=== PATIENT | male | born 1980 | race Hispanic/Latino ===

== ENCOUNTER 2020-01-18 18:46 | Emergency (ER) | payer SELFPAY ==
[~2020-01-18] VITALS: Ht 185.4 cm; Wt 145.1 kg
--- NOTE | 2020-01-18 20:57 | Diagnostic Imaging Report ---
EXAMINATION: CHEST SINGLE (PORTABLE) INDICATION: ^Y ^fever, cough, sob c exertion- covid exposure ^20200118 ^2029 ^N COMPARISON: None FINDINGS: AP view TUBES and LINES: None. LUNGS/PLEURA: Lungs are well inflated. There is no evidence of pneumonia or pulmonary edema.. There is no pleural effusion or pneumothorax. HEART AND MEDIASTINUM: The cardiomediastinal silhouette is unremarkable. BONES AND SOFT TISSUES: No acute osseous lesion. Soft tissues are unremarkable. UPPER ABDOMEN: No free air under the diaphragm. IMPRESSION: No acute thoracic abnormality. Signed by: Lázaro Owens MD on 01/18/2020 8:54 PM
--- NOTE | 2020-01-18 22:22 | Emergency Department Note ---
History of Present Illnes History of Present Illness Chief Complaint: General Medicine Complaints History of Present Illness This is a 39 year old male HERE FOR SUBJECTIVE FEVER AT HOME WITH SWEATING, CLIENT STATES THAT HE HAD FEVER LAST FRIDAY OF 102. TAKING MUCINEX, AND TYLENOL OFF AND ON. CLIENT NOT CLEAR ON SYMPTOMS. DENIES FEVER TODAY. [place]END ABOUT 8 DAYS AGO WHO IS NOW POSITIVE FOR COVID . Historian: Patient Arrival Mode: Car Onset (how long ago): day(s) (4) Location: ALL OVER Quality: BODY ACHES, DRY COUGH, INTERMITTENT FEVER Severity: mild Onset quality: gradual Duration (how long): day(s) (4) Timing of current episode: intermittent Progression: waxing and waning Chronicity: new Relieving factors: none Exacerbating factors: none Associated symptoms: Reports denies other symptoms Treatments prior to arrival: none Past Medical/Family History Physician Review I have reviewed the patient's past medical and family history. Any updates have been documented here. Past Medical History Recent Fever: No Clinical Suspicion of Infectio: No New/Unexplained Change in Ment: No Past Medical History: A-Fib Past Surgical History: None Social History Smoking Cessation: Never Smoker Counseling Performed: No Alcohol Use: None Any Illegal Drug Use: No TB Exposure/Symptoms: No Physically hurt or threatened: No Other Any Pre-Existing Lines (PICC,: No Is patient up to date on immun: Yes Last Flu: denies Last Pneumovax: denies Review of Systems Review of Systems Constitutional: Reports as per HPI EENTM: Reports no symptoms Cardiovascular: Reports no symptoms Respiratory: Reports as per HPI Gastrointestinal: Reports no symptoms Genitourinary: Reports no symptoms Musculoskeletal: Reports no symptoms Integumentary: Reports no symptoms Neurological: Reports no symptoms Psychological: Reports no symptoms Endocrine: Reports no symptoms Hematological/Lymphatic: Reports no symptoms Physical Exam Related Data Allergies: Coded Allergies: No Known Allergies (Unverified , 01/18/20) Triage Vital Signs Vital Signs Date Time Temp Pulse Resp B/P (MAP) Pulse Ox O2 Delivery O2 Flow Rate FiO2 01/18/20 19:05 97.9 82 18 133/94 99 Vital signs reviewed: Yes Physical Exam CONSTITUTIONAL Constitutional: Present well-developed, Present well-nourished HENT HENT: Present normocephalic, Present atraumatic, Present oropharynx clear/moist, Present nose normal HENT L/R: Present left ext ear normal, Present right ext ear normal EYES Eyes: Reports PERRL, Reports conjunctivae normal NECK Neck: Present ROM normal PULMONARY Pulmonary: Present effort normal, Present breath sounds normal CARDIOVASCULAR Cardiovascular: Present regular rhythm, Present heart sounds normal, Present capillary refill normal, Present normal rate GASTROINTESTINAL Abdominal: Present soft, Present nontender, Present bowel sounds normal GENITOURINARY Genitourinary: Present exam deferred SKIN Skin: Present warm, Present dry MUSCULOSKELETAL Musculoskeletal: Present ROM normal NEUROLOGICAL Neurological: Present alert, Present oriented x 3, Present no gross motor or sensory deficits PSYCHOLOGICAL Psychological: Present mood/affect normal, Present judgement normal Results Laboratory Laboratory Laboratory Tests Test 01/18/20 19:55 Imaging Imaging results reviewed: Yes Impressions EXAMINATION: CHEST SINGLE (PORTABLE) INDICATION: ^Y ^fever, cough, sob c exertion- covid exposure ^20200118 ^2029 ^N COMPARISON: None FINDINGS: AP view TUBES and LINES: None. LUNGS/PLEURA: Lungs are well inflated. There is no evidence of pneumonia or pulmonary edema.. There is no pleural effusion or pneumothorax. HEART AND MEDIASTINUM: The cardiomediastinal silhouette is unremarkable. BONES AND SOFT TISSUES: No acute osseous lesion. Soft tissues are unremarkable. UPPER ABDOMEN: No free air under the diaphragm. IMPRESSION: No acute thoracic abnormality. Signed by: Lázaro Owens MD on 01/18/2020 8:54 PM Assessment & Plan Medical Decision Making MDM PT WITH FEVER, COUGH, BODY ACHES, WITH EXPOSURE TO COVID POSITIVE FRIEND CXR, COVID 19 ORDERED PT'S CXR NORMAL, COVID 19 PENDING, PT DISCHARGED HOME INSTRUCTED TO SELF QUARANTINE FOR NEXT 14 DAYS, WE WILL CALL PT WITH COVID RESULTS WHEN THEY ARRIVE Assessment & Plan Final Impression: (1) Viral syndrome Last Vital Signs Date Time Temp Pulse Resp B/P (MAP) Pulse Ox O2 Delivery O2 Flow Rate FiO2 01/18/20 19:48 98.1 78 17 113/72 99 ERIK MAHONEY MD Jan 18, 2020 22:22
[2020-01-18 22:38] VITALS: BP 123/84
== END 2020-01-18 22:39 | disposition home or self-care (01) ==
LOC: ER 18:46
DX: R50.9 Fever, unspecified (principal); R05 Cough; U07.1 COVID-19; B34.9 Viral infection, unspecified
CPT/HCPCS: 71045; 87635; 99283

== ENCOUNTER 2021-02-26 13:15 | Emergency (ER) | payer SELFPAY ==
[~2021-02-26] VITALS: Ht 185.4 cm; Wt 145.1 kg
[2021-02-26 14:16] LABS: BASOPHILS % 0.4 % (0.0-1.0); EOSINOPHILS # (AUTO) 0.2 (0.0-0.4); HEMATOCRIT 40.6 % (38.2-49.6); HEMOGLOBIN 13.1 g/dL (14.0-18.0); LYMPHOCYTES # (AUTO) 1.7 (1.0-3.2); LYMPHOCYTES % 17.5 % (18.0-39.1); MEAN CORPUSCULAR HEMOGLOBIN 28.6 pg (28-32); MEAN CORPUSCULAR HGB CONC 32.3 g/dL (31-35); MEAN CORPUSCULAR VOLUME 88.6 fL (81-99); MONOCYTES # (AUTO) 0.7 (0.2-0.8); MONOCYTES % 6.5 % (4.4-11.3); NEUTROPHILS # (AUTO) 7.3 (2.1-6.9); NEUTROPHILS % 73.1 % (38.7-80.0); PLATELET COUNT 244 x10e3/uL (140-360); RED BLOOD COUNT 4.58 x10e6/uL (4.3-5.7); RED CELL DISTRIBUTION WIDTH 12.6 % (11.7-14.4)
[2021-02-26 14:18] LABS: CLARITY,URINE SL CLOUDY (CLEAR); COLOR,URINE ORANGE (YELLOW); KETONES,URINE TRACE (NEGATIVE); LEUKOCYTE ESTERASE ,URINE NEGATIVE (NEGATIVE); NITRITE,URINE POSITIVE (NEGATIVE); PROTEIN,URINE DIPSTICK 1+ (NEGATIVE); URINE UROBILINOGEN 2 mg/dL (0.2 - 1)
[2021-02-26 14:30] LABS: AMORPHOUS SEDIMENT,URINE FEW (FEW); BACTERIA,URINE MODERATE /HPF; EPITHELIAL CELLS,URINE FEW /LPF; MUCUS,URINE FEW (RARE); WBC,URINE (MAN) 0-5 /HPF (0-5)
[2021-02-26 14:33] LABS: ALBUMIN 3.5 g/dL (3.5-5.0); ALBUMIN/GLOBULIN RATIO 0.9 (0.8-2.0); ANION GAP 12.9 mmol/L (8-16); CALCIUM 8.8 mg/dL (8.4-10.2); CREATININE, SERUM 1.44 mg/dL (0.72-1.25); POTASSIUM 3.9 mmol/L (3.5-5.1)
[2021-02-26] MEDS ORDERED: DOXYCYCLINE HYCLATE TABLET 100 MG TAB PO ONE (15:45)
[2021-02-26] MEDS ORDERED: CEFTRIAXONE 1 GM VIAL IM ONE (15:45)
[2021-02-26] MEDS ORDERED: GENTAMICIN 120MG/NS 100ML 100 ML IV ONE (17:00)
[2021-02-26 17:23] VITALS: BP 136/71
== END 2021-02-26 17:24 | disposition home or self-care (01) ==
LOC: ER 13:24
DX: R10.32 Left lower quadrant pain (principal); N13.2 Hydronephrosis with renal and ureteral calculous obstruction; R73.9 Hyperglycemia, unspecified; N43.40 Spermatocele of epididymis, unspecified; N43.3 Hydrocele, unspecified; K76.0 Fatty (change of) liver, not elsewhere classified
CPT/HCPCS: 36415; 74176; 76870; 80053; 81001; 83690; 85025; 87086; 93976; 99284; J0696; J1580

== ENCOUNTER 2021-07-23 12:48 | Emergency (ER) | payer SELFPAY ==
[~2021-07-23] VITALS: Ht 185.4 cm; Wt 149.7 kg
== END 2021-07-23 13:59 | disposition home or self-care (01) ==
LOC: ER 12:53
DX: R09.81 Nasal congestion (principal); R05.9 Cough, unspecified
CPT/HCPCS: 99282